=== PATIENT | male | born 1995 | race African-American/Black ===

== ENCOUNTER 2017-02-01 15:59 | Emergency (ER) | payer SELFPAY ==
[~2017-02-01] VITALS: Ht 195.6 cm; Wt 159.0 kg
[2017-02-01] MEDS ORDERED: CeFAZolin 1 GM/DEXTROSE 50 ML IV ONE (16:15)
[2017-02-01] MEDS ORDERED: PERTUSS(ACELL),DIPH,TET VAC/PF 0.5 ML VIAL IM ONE (16:15)
[2017-02-01 16:33] VITALS: BP 113/68
== END 2017-02-01 17:04 | disposition short-term general hospital (02) ==
LOC: EMS 16:00
DX: S31.119A Laceration without foreign body of abdominal wall, unspecified quadrant without penetration into peritoneal cavity, initial encounter (principal); F17.210 Nicotine dependence, cigarettes, uncomplicated; Y04.0XXA Assault by unarmed brawl or fight, initial encounter; Y93.67 Activity, basketball; Y92.89 Other specified places as the place of occurrence of the external cause; Y99.9 Unspecified external cause status
CPT/HCPCS: 90471; 90715; 96374; 99285; J0690

== ENCOUNTER 2020-01-11 16:12 | Emergency (ER) | payer MEDICAID ==
[~2020-01-11] VITALS: Ht 190.5 cm; Wt 159.1 kg
[2020-01-11] MEDS ORDERED: IBUPROFEN 800 MG TABLET PO ONE (18:15)
[2020-01-11] MEDS ORDERED: CefTRIAXone SODIUM 1 GM/VIAL IM ONE (18:15)
[2020-01-11] MEDS ORDERED: LIDOCAINE/PF 1% 2 ML VIAL IM ONE (18:15)
[2020-01-11 19:05] VITALS: BP 133/84
== END 2020-01-11 19:08 | disposition home or self-care (01) ==
LOC: EMS 16:13
DX: L02.01 Cutaneous abscess of face (principal); F17.210 Nicotine dependence, cigarettes, uncomplicated; F12.90 Cannabis use, unspecified, uncomplicated
CPT/HCPCS: 10060; 96372; 99283; J0696; J3490